=== PATIENT | female | born 1945 | race Caucasian/White ===

== ENCOUNTER 2022-09-21 21:40 | Emergency (ER) | payer MEDICARE, BC, SELFPAY ==
[2022-09-21 21:47] VITALS: BP 178/91; PULSE 78; RESP 18; TEMP 36.7; O2SAT 98; BMI 21.4
[2022-09-21] MEDS: dexamethasone 10 mg/mL INJ 4 MG IM (22:42)
--- NOTE | 2022-09-21 22:42 | ED_ITS ---
HPI - Skin/Abscess/Foreign Bdy General: Chief complaint: Skin/Abscess/Foreign Body Stated complaint: Rash on Arm and Tongue Time Seen by Provider: 09/21/22 22:12 History of Present Illness: Patient is in tonight for complaints of rash. She reports that she has been visiting from [place]. She reports that for 2 days she has had red spots on bilateral upper arms, chest. She reports that a couple of them have been itching off and on. She reports that they did not seem to be worsening until today and then they became more itchy and she noticed a spot on the tip of her tongue. She is unsure of any new food or allergen exposures as she is visiting family from her home state of [place]. She reports that the family does have a lot of animals in their home and they have been cooking for them. She denies any swelling of her tongue, throat, mouth. She denies any difficulty breathing. She denies any known allergens. She does take medication for high blood pressure. Associated symptoms: Deny chills, fever(s), nausea or vomiting Review of Systems Const: Denies: fever(s) or chills ENMT: Reports: other (Does have some redness to the tip of her tongue); Denies: uvular edema, hoarseness or swelling of lips/tongue Card: Denies: chest pain or palpitations Resp: Denies: dyspnea, productive cough, non-productive cough, wheezing or stridor GI: Denies: abdominal pain, nausea or vomiting : Denies: flank pain, difficulty voiding, dysuria, urinary frequency or urinary urgency Physical Exam Const: COMMON NORMALS: no acute distress, patient oriented x3 and alert HENMT: THROAT: no uvular edema OTHER: Minor erythema noted to the tip of her tongue. No swelling appreciated. Resp: COMMON NORMALS: normal respiratory effort, No use of accessory muscles and clear to auscultation bilaterally AUSCULTATION: clear to auscultation bilaterally Cardio: COMMON NORMALS: regular rate, regular rhythm, S1 normal heart sound present and S2 normal heart sound present RATE: regular rate RHYTHM: regular rhythm HEART SOUNDS: S1 normal heart sound present and S2 normal heart sound present Neuro: COMMON NORMALS: patient oriented x3 SENSORIUM/ORIENTATION: Yes alert Skin: NARRATIVE SKIN EXAM: Patient has several varied size round slightly raised erythematous patches on bilateral upper extremities a couple across the chest, 2 to the left side of her face, with mild redness to the tip of the patient's tongue. These lesions appear consistent with hives Course Vital Signs: Vital signs: Vital Signs Temperature 98.1 F 09/21/22 21:47 Pulse Rate 78 09/21/22 21:47 Respiratory Rate 18 09/21/22 21:47 Blood Pressure 178/91 09/21/22 21:47 Pulse Oximetry 98 09/21/22 21:47 Oxygen Delivery Me thod 09/21/22 21:47 MDM - Skin/Abscess/Foreign Bdy Medicial Decision Making This is a 77-year-old female that [place] town [place]. She reports that for 2 days she has had redness and itching to patches on both upper arms. She reports that they really had not been getting worse until today and she noticed redness to the tip of her tongue. She denies any difficulty breathing, swallowing. Physical exam findings are consistent with hives. We will treat patient with Benadryl and Decadron IM. Send patient a prescription for prednisone for the next 3 days. She can start this tomorrow. Advised of possible benefits and side effects of medications provided. Advised of red flags for worsening allergic reaction and to return to the ER should she have any new or worsening symptoms Discharge Plan Discharge Patient Disposition: Home Clinical Impression: Hives Condition: Stable Prescriptions: New prednisone 20 mg tablet 40 mg PO DAILY 3 Days Qty: 6 0RF Discharge Orders: Discharge ED (Routine); Ordered 09/21/22 Ordered By: Elizabeth Murrieta Discharge Diet: Usual diet Discharge Activity: Resume usual activity Patient Instructions: Urticaria (ED), Opioid Safety, Pain Management Activity Restrictions/Additional Instructions: Start prednisone tomorrow. You will take 2 tabs every morning x3 days. Make sure that you take the medication with food. Keep Benadryl on hand. Return to the emergency department immediately as needed for new or worsening symptoms including, but not limited to, worsening rash, swelling of the mouth, throat, tongue, difficulty breathing. 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
[2022-09-21] MEDS: diphenhydrAMINE 50 mg/mL SDV 1mL 25 MG IM (22:43)
== END 2022-09-21 23:34 | disposition home or self-care (01) ==
PROVIDERS: Emergency Provider Nurse Practitioner Family
DX: L50.9 Urticaria, unspecified (principal)
CPT/HCPCS: 96372; 99284; J1100; J1200